=== PATIENT | female | born 1960 | race Caucasian/White ===

== ENCOUNTER 2017-12-27 08:14 | Emergency (ER) | payer MEDICARE, OTHER ==
[~2017-12-27] VITALS: Ht 177.8 cm; Wt 83.9 kg
[~2017-12-27 08:14] MED LIST: ALEN70 PO; ANGELIQ 0.25 M1 EACH PO; Angeliq 0.5 MG1 EACH PO; CYCL10 PO; DOCU100 PO; ENOX40I SC; HYDACE5 PO; HYDPAM50 PO; Hydrocodone-Ap1 EA20 PO; LEVSOD75 PO; LEVSOD88 PO; MECL25 PO; OXYACE5T PO; TRAM50 PO; TRAZ50 PO
[2017-12-27] MEDS ORDERED: Prozac20 MG PO (08:24)
== END 2017-12-27 09:36 | disposition home or self-care (01) ==
LOC: ER 08:14
DX: S62.625A Displaced fracture of middle phalanx of left ring finger, initial encounter for closed fracture (principal); Z79.899 Other long term (current) drug therapy; W23.0XXA Caught, crushed, jammed, or pinched between moving objects, initial encounter
CPT/HCPCS: 29125; 73130; 99283; L3917

== ENCOUNTER 2019-04-04 11:28 | Emergency (ER) | payer OTHER ==
[~2019-04-04] VITALS: Ht 177.8 cm; Wt 74.8 kg
[~2019-04-04 11:28] MED LIST changes: +Prozac20 MG PO
[2019-04-04] MEDS ORDERED: Sudogest60 MG PO (11:40)
[2019-04-04] MEDS ORDERED: Flonase 0.05% N16 GM (11:40)
[2019-04-04] MEDS ORDERED: Norco 5-325 Ta1 EACH PO (12:17)
== END 2019-04-04 12:50 | disposition home or self-care (01) ==
LOC: ER 11:28
DX: S82.102A Unspecified fracture of upper end of left tibia, initial encounter for closed fracture (principal); W11.XXXA Fall on and from ladder, initial encounter; Z79.899 Other long term (current) drug therapy; G43.909 Migraine, unspecified, not intractable, without status migrainosus
CPT/HCPCS: 29505; 73564; 99283-25; A9270-GY

== ENCOUNTER 2021-02-04 18:09 | Emergency (ER) | payer OTHER ==
[~2021-02-04] VITALS: Ht 177.8 cm; Wt 81.7 kg
[~2021-02-04 18:09] MED LIST changes: +Flonase 0.05% N16 GM; +Norco 5-325 Ta1 EACH PO; +Sudogest60 MG PO
[2021-02-04] MEDS ORDERED: TRAZ150T57 PO (19:40)
[2021-02-04] MEDS ORDERED: Voltaren100 GM TOP (20:32)
== END 2021-02-04 20:50 | disposition home or self-care (01) ==
LOC: ER 18:09
DX: S60.211A Contusion of right wrist, initial encounter (principal); Z79.899 Other long term (current) drug therapy; X50.1XXA Overexertion from prolonged static or awkward postures, initial encounter
CPT/HCPCS: 73130; 99283-25; A9270; A9270-GY

== ENCOUNTER → 2024-04-24 | Outpatient (CLI) | payer OTHER ==
[~2024-04-24] MED LIST changes: +TRAZ150T57 PO; +Voltaren100 GM TOP
[2024-04-24 10:08] LABS: BASOPHILS ABSOLUTE AUTO 0.05 K/mm3 (0.00-0.23); BASOPHILS PERCENT AUTO 1 % (0-2); EOSINOPHILS ABSOLUTE AUTO 0.17 K/mm3 (0.00-0.68); EOSINOPHILS PERCENT AUTO 3 % (0-6); Hematocrit 43.4 % (33.0-51.0); Hemoglobin 14.2 g/dL (11.5-16.0); IMMATURE GRAN ABSOLUTE AUTO 0.02 K/mm3 (0.00-0.10); IMMATURE GRAN PERCENT AUTO 0 % (0-1); LYMPHOCYTES ABSOLUTE AUTO 1.63 K/mm3 (0.84-5.20); LYMPHOCYTES PERCENT AUTO 25 % (21-46); MONOCYTES ABSOLUTE AUTO 0.55 K/mm3 (0.16-1.47); MONOCYTES PERCENT AUTO 8 % (4-13); Mean Corpuscular HGB 29.9 pg (26.0-34.0); Mean Corpuscular HGB Conc 32.7 g/dL (31.5-36.5); Mean Corpuscular Volume 91 fL (80-100); Mean Platelet Volume 9.4 fL (9.1-12.4); NEUTROPHILS ABSOLUTE AUTO 4.13 K/mm3 (1.96-9.15); NEUTROPHILS PERCENT AUTO 63 % (41-73); Platelet Count 244 K/mm3 (150-400); RDW Coefficient Variation 14.2 % (11.7-14.2); RDW Standard Deviation 47.8 fL (35.1-46.3); Red Blood Cell Count 4.75 M/mm3 (3.80-5.20); White Blood Cell Count 6.55 K/mm3 (4.00-11.30)
[2024-04-24 10:25] LABS: Alanine Aminotransfer (ALT/SGP 15 U/L (12-78); Albumin, Blood 3.4 g/dL (3.4-5.0); Albumin/Globulin Ratio 0.8 (0.8-1.8); Alk Phos 57 U/L (40-126); Anion Gap 15 mmol/L (3-11); Aspartate Aminotrans (AST/SGOT 14 U/L (12-37); Bilirubin, Total 0.8 mg/dL (0.1-1.0); Blood Urea Nitrogen 15 mg/dL (8-24); Bun/Creatinine Ratio 12.6 (12.0-20.0); CHOL/HDL RATIO 3.2; CO2, Blood 27 mmol/L (21-32); Calcium, Blood 9.3 mg/dL (8.5-10.1); Chloride, Blood 105 mmol/L (98-108); Cholesterol 249 mg/dL (50-200); Creatinine, Blood 1.19 mg/dL (0.40-1.00); Globulin, Blood 4.2 g/dL (2.2-4.0); Glomerular Filtration Rate 51 (60-); Glucose, Blood 103 mg/dL (70-99); HDL Cholesterol 77 mg/dL (>39); LDL/HDL RATIO 2.1; Low Density Lipoprotein Chol 161 mg/dL (<110); Potassium, Blood 4.9 mmol/L (3.5-5.5); Sodium, Blood 142 mmol/L (136-145); Thyroid Stimulating Hormone 4.158 uIU/mL (0.360-4.800); Total Protein, Blood 7.6 g/dL (6.4-8.2); Triglycerides 57 mg/dL (30-160); Very Low Density Lipoprot Chol 11 mg/dL (6-32)
== END ==
LOC: LAB SHORT 10:01 → LAB 10:01
PROVIDERS: Family Medicine
DX: E03.9 Hypothyroidism, unspecified (principal)
CPT/HCPCS: 80053; 80061; 84443; 85025